=== PATIENT | female | born 2000 | race Caucasian/White ===

== ENCOUNTER → 2020-01-28 12:20 | Outpatient (CLI) | payer OTHER, MEDICAID, SELFPAY ==
[2020-01-28 13:05] LABS: Appearance Urine UA CLEAR; Bilirubin Urine UA NEGATIVE (NEGATIVE); Color Urine UA YELLOW; Glucose Urine UA NEGATIVE (Negative); Ketones Urine UA TRACE (NEGATIVE); Leukocyte Esterase Urine UA NEGATIVE (NEGATIVE); Nitrite Urine UA NEGATIVE (Negative); Occult Blood Urine UA TRACE-LYSED (Negative); Protein Urine UA NEGATIVE (Negative); Specific Gravity Urine UA 1.015 (1.000-1.035); Urobilinogen Urine UA 0.2 E.U./dL (0.2)
[2020-01-28 13:08] LABS: Add Manual Diff / Slide Review NO; Basophils Absolute Auto 0 /uL (0-100); Basophils Percent Auto 0.2 % (0-2); Eosinophils Absolute Auto 0 /uL (0-450); Eosinophils Percent Auto 0.3 % (2-4); Hematocrit 41.9 % (36-46); Hemoglobin 14.7 g/dL (12.0-16.0); Lymphocytes Absolute Auto 1900 /uL (1100-4500); Lymphocytes Percent Auto 17.5 % (25-40); Mean Corpuscular Volume 88.6 fL (80-100); Monocytes Absolute Auto 500 /uL (0-900); Monocytes Percent Auto 4.5 % (3-14); Neutrophils Absolute Auto 8200 /uL (1500-7000); Neutrophils Percent Auto 77.5 % (50-75); Platelet Count 262 X10^3/uL (150-400); Red Blood Cell Count 4.74 X10^6/uL (4.0-5.2); Red Cell Distribution Width 13.5 % (11.6-14.8); White Blood Cell Count 10.6 X10^3/uL (4.5-11.0)
[2020-01-29 10:38] LABS: Varicella IgG Antibody <135 index (Immune >165)
[2020-01-30 15:57] LABS: Hepatitis B Surface Antigen NEGATIVE s/c (NEGATIVE); Rubella Antibody IgG 9.3 IU/mL (>15)
[2020-01-30 15:58] LABS: HIV 1 & 2 Ab/Ag 4th Gen Combo NEGATIVE (NEGATIVE); Hep C Virus Ab w/Reflex Quant NEGATIVE s/c (NEGATIVE)
[2020-01-31 05:09] LABS: RPR Screen Non Reactive (Non Reactive)
== END ==
PROVIDERS: Family Provider Family Medicine; PCP Family Medicine; Referring Provider Family Medicine; Visit Provider Family Medicine
DX: Z34.91 Encounter for supervision of normal pregnancy, unspecified, first trimester (principal)
CPT/HCPCS: 36415; 80055; 81003; 86787; 86803; 86850; 86900; 86901; 87086; 87389

== ENCOUNTER 2020-03-30 23:34 | Emergency (ER) | payer BC, OTHER, MEDICAID, SELFPAY ==
--- NOTE | 2020-03-30 23:41 | ED_ITS ---
HPI - Headache General Chief Complaint: Headache Stated Complaint: migraine X1week Time Seen by Provider: 03/30/20 23:39 Source: patient Mode of arrival: Ambulatory Limitations: no limitations History of Present Illness HPI Narrative: 19-year-old female nonsmoker with history of headaches presents with a chief complaint of a headache for the past week or so. She denies any injury nor fever chills. She has no neck pain. She has no numbness, tingling or weakness. She is a without history of abnormal blood pressures. She has tried taking Tylenol at home and spoke with her primary care provider today and was given a prescription for Reglan which has yet to provide much in the way of relief. MD Complaint: headache and migraine Onset (ago): day(s) Onset description: gradual Location: diffuse Severity: moderate Quality: aching, throbbing and different than previous headaches Relieving factors: dark room Exacerbating factors: light Context: occurred at rest Associated symptoms: nausea Treatments prior to arrival: acetaminophen and antiemetic Related Data Home Medications Medication Instructions Recorded Confirmed prenat.vits,ramona,[id number] 1 tab PO DAILY 01/23/20 03/27/20 Previous Rx's Medication Instructions Recorded metoclopramide HCl 10 mg tablet 10 mg PO ONCE PRN #1 tab 03/30/20 Allergies Allergy/AdvReac Type Severity Reaction Status Date / Time acetaminophen [From TYLENOL] Allergy Unknown Verified 03/27/20 08:32 prochlorperazine Allergy Unknown Verified 03/27/20 08:32 [From COMPAZINE] Review of Systems Constitutional Constitutional: Denies chills, Denies fatigue, Denies fever(s), Denies frequent falls, Reports headache(s), Denies lethargy and Denies weakness Eyes Eyes: Denies change in vision, Denies eye discharge, Denies irritation and Denies loss of vision ENT Ears, Nose, Mouth, and Throat: Denies change in voice, Denies dizziness, Reports headache(s), Denies neck pain, Denies sore throat and Denies throat swelling Cardiovascular Cardiovascular: Denies chest pain, Denies irregular heart rhythm, Denies lightheadedness, Denies palpitations, Denies dyspnea, Denies dyspnea on exertion and Denies orthopnea Respiratory Respiratory: Denies cough, Denies dyspnea, Denies dyspnea on exertion and Denies wheezing Gastrointestinal Gastrointestinal: Denies abdominal pain, Denies change in bowel habits, Denies diarrhea, Reports nausea and Denies vomiting Musculoskeletal Musculoskeletal: Denies neck pain and Denies numbness Integumentary/Breasts Skin/Breast: Denies pruritus, Denies erythema, Denies rash and Denies wounds Neurologic Neurologic: Denies behavioral changes, Denies confusion, Denies dizziness, Denies frequent falls, Reports headache(s), Denies loss of vision, Denies numbness and Denies weakness Psychiatric Psychiatric: Denies anxiety, Denies behavioral changes, Denies confusion, Denies depression, Denies homicidal ideation and Denies suicidal ideation Endocrine Endocrine: Denies fatigue, Denies flushing and Denies palpitations Hematologic/Lymphatic Hematologic/Lymphatic: Denies easy bruising Allergic/Immunologic Allergic/Immunologic: Denies urticaria, Denies throat swelling and Denies wheezing Patient History Medical History Dislocation of left wrist (Acute) Headache (Chronic ~2011) Migraine (Acute ~2011) Strain of right knee (Acute) Strain of right knee and leg (Acute) Surgical History H/O wisdom tooth extraction (Acute) History of primary section (Acute ~05/15/19) Hx of tonsillectomy (Acute) S/P left knee arthroscopy (Acute) Family History Mother Anxiety Hypertension Stroke Depression Ovarian cancer Cervical cancer Clotting disorder Father Depression Grandfather No problems noted. Grandmother Pancreatic cancer Diabetes mellitus Hypertension Grandfather Stroke Myocardial infarct Grandmother No problems noted. Brother Depression Anxiety Autism Sister Depression Anxiety Social History marital status: number of children: 1 pets and animals: Yes (X 1 dog) education level: other (Declined) occupational status: unemployed current occupational exposures/hazards: No special kyle needs: No Smoking Status: Never smoker second hand exposure: No alcohol intake: never substance use type: does not use Smoking Status: Never smoker Exam Narrative Exam Narrative: GENERAL: [19] year old patient appears stated age. Well- nourished, well-developed patient, in mild distress. HEAD: Atraumatic. Normocephalic. EYES: Pupils equal round and reactive. Extraocular motions intact. No scleral icterus. No injection or drainage. ENT: Nose without bleeding, purulent drainage. Throat without erythema, tonsill ar hypertrophy or exudate. Airway patent. NECK: Trachea midline. Non tender CARDIOVASCULAR: Regular rate and rhythm without murmurs, gallops, or rubs. RESPIRATORY: Clear to auscultation. Breath sounds equal bilaterally. No wheezes, rales, or rhonchi. GASTROINTESTINAL: Abdomen soft, non-tender, nondistended. EXTREMITIES: No edema or joint tenderness. BACK: Nontender without deformity or crepitance. No flank tenderness. NEURO: AOx3. SKIN: No rash or erythema of visible areas NIH Stroke Scale 1a. LOC: Patient is alert and keenly responsive (0) 1b. LOC Questions: Patient answers both LOC questions accurately (0) 1c. LOC Commands: Patient performs both tasks correctly (0) 2. Best Gaze: Normal (0) 3. Visual: No visual loss (0) 4. Facial palsy: Normal symmetrical movements (0) 5. Motor arm: No drift (0) 6. Motor leg: No drift (0) 7. Limb ataxia: Absent (0) 8. Sensory: Normal (0) 9. Best language: No aphasia; normal (0) 10. Dysarthria: Normal (0) 11. Extinction and inattention: No abnormality (0) NIHSS: 0 Course Course Course Narrative: Patient's parents minimal improvement after IV fluids and Reglan. She was given Toradol and Tylenol and had a near complete resolution of her symptoms. I did discuss with her the minimal likely wrist of using Toradol during 2nd trimester and we both agreed that the given evidence would suggest the potential benefit is worth the minimal risk. Orders Ordered: Discontinued Medications Acetaminophen (Tylenol) 975 mg PO NOW ONE Stop: 03/31/20 01:39 Last Admin: 03/31/20 01:48 Dose: 975 mg Documented by: LIZABETH Sodium Chloride (Normal Saline 0.9%) 1,000 mls @ 1,000 mls/hr IV BOLUS ONE Stop: 03/31/20 00:43 Last Infusion: 03/31/20 01:49 Dose: 0 mls/hr Documented by: Admin: 03/31/20 00:19 Dose: 1,000 mls/hr Documented by: PER Ketorolac Tromethamine (Toradol) 15 mg IV NOW ONE Stop: 03/31/20 01:37 Last Admin: 03/31/20 01:48 Dose: 15 mg Documented by: LIZABETH Metoclopramide HCl (Reglan) 10 mg IV NOW ONE Stop: 03/31/20 00:39 Last Admin: 03/31/20 00:46 Dose: 10 mg Documented by: STEVEN MDM - Headache MDM Narrative Medical decision making narrative: Multiple etiologies for patient's symptoms considered including: [migraine vs. preeclampsia vs. other] Patient's symptoms improved over duration of stay with above-stated therapies. Findings and discharge diagnosis discussed with patient/family followed by verbalization of understanding Return precautions discussed with patient/family whom verbalize understanding. Discharge Plan Departure Patient Disposition: Home Clinical Impression: Headache Qualifiers: Headache type: unspecified Headache chronicity pattern: acute headache Intractability: not intractable Qualified Code(s): R51 - Headache Migraine Qualifiers: Migraine type: unspecified Status migrainosus presence: without status migrainosus Intractability: not intractable Qualified Code(s): G43.909 - Migraine, unspecified, not intractable, without status migrainosus Instructions: DI for Migraine, DI for Headache Activity Restrictions/Additional Instructions: *You have been diagnosed with [acute migraine-type headache] *What to do: *Take medications as directed *Follow up with your primary care provider in 2-3 days, call for an appointment. Let them know you were seen in the Emergency Department and that we ask that you be seen in follow up *Return to ER if you should have any new, worsening or concerning symptoms, such as [ ] Prescriptions: No Action metoclopramide HCl [Reglan] 10 mg tablet 10 mg PO ONCE PRN (Reason: nausea and vomiting) Qty: 1 RF: 0 prenat.vits,ramona,[id number] Tablet 1 tab PO DAILY RF: 0 Referrals: Stan Sanchez MD [Primary Care Provider] -
[2020-03-31] MEDS: SODIUM CHLORIDE 0.9% 1,000 ML 1000 ML IV (00:19)
[2020-03-31] MEDS: METOCLOPRAMIDE 10 MG/2 ML INJ IV (00:46)
[2020-03-31] MEDS: ACETAMINOPHEN 325 MG TABLET 975 MG PO (01:48)
[2020-03-31] MEDS: KETOROLAC 60 MG/2 ML VIAL 15 MG IV (01:48)
[2020-03-31 02:22] VITALS: BP 130/69; PULSE 78; RESP 16; TEMP 36.4; O2SAT 100
== END 2020-03-31 02:23 | disposition home or self-care (01) ==
PROVIDERS: Emergency Provider Emergency Medicine; Family Provider Family Medicine; PCP Family Medicine
DX: G43.909 Migraine, unspecified, not intractable, without status migrainosus (principal)
CPT/HCPCS: 36415; 96361; 96374; 96375; 99284; J1885; J2765

== ENCOUNTER → 2020-04-24 12:03 | Outpatient (CLI) | payer BC, OTHER, MEDICAID, SELFPAY ==
--- NOTE | 2020-04-24 12:04 | DI.US.S_ITS ---
PROCEDURE: US OB >= 14 WEEKS FETUS INDICATIONS: ANATOMIC SURVEY OUTSIDE/PRIOR DATING DATA: Last menstrual period (LMP): Unknown. LMP-based estimated date of delivery (PERRY): Unknown . First dating scan (date and location): 04/24/20 . Estimated date of delivery (PERRY) from first dating scan: 09/10/20 . TECHNIQUE: Real-time scanning was performed of the fetus, with image documentation and biometric measurements. Endovaginal scanning: Not performed COMPARISON: None. FINDINGS: General: A single living intrauterine gestation is present. Presentation: Breech. Placenta: Placental position is anterior , without previa. Amniotic fluid index: 9.4 cm, normal range is 5-24 cm. heart rate: 132 beats per minute. Maternal cervical canal: 5.0 cm long. Normal lower limit is 2.5 cm. biometrics: Biparietal diameter: 4.5 cm, 19 weeks 3 days Head circumference: 16.9 cm, 19 weeks 4 days Abdominal circumference: 15.8 cm, 21 weeks 0 days Femur length: 3.3 cm, 20 weeks 2 days Estimated gestational age from initial scan: not applicable. Composite gestational age from present scan: 20 weeks 1 day Estimated weight and percentile: 359 g. Measurement variability for biometric dating: +/- 7 days from 14 weeks to 15 weeks 6 days gestation, +/- 10 days from 16 weeks to 21 weeks 6 days gestation, +/- 2 weeks from 22 weeks to 27 weeks 6 days gestation, +/- 3 weeks for 28 weeks gestation or later. weight reference: 4500 g or EFW >90/95% is considered macrosomia or large for gestational age. EFW <10% is small for gestational age. EFW 5% or less is considered intra-uterine growth restriction. Anatomic survey: Neuro: Ventricles are non-dilated at less than 10 mm. Cisterna magna is normal at 3-11 mm. Cerebellum is normal in size and morphology. Nuchal skin fold: Normal at less than 6 mm between 14-21 weeks gestational age. Face: Nose and lips, facial profile are normal. Spine: No evidence for spina bifida. Heart: 4-chambered heart is present, with normal ventricular outflow tracts. Diaphragm: Diaphragm is intact. Stomach: Left-sided stomach is present. Kidneys: No hydronephrosis. Normal is less than 5 mm in 2nd trimester, less than 7 mm in 3rd trimester. Cord: 3-vessel cord has orthotopic insertion. Bladder: Normal in size. Extremities: All 4 extremities identified. IMPRESSION: Single living intrauterine fetus in breech presentation demonstrating gestational age of 20 weeks and 1 day by today's measurements as detailed above. Given the absence of LMP or first-trimester dating ultrasound, a follow-up ultrasound in 3-4 weeks for growth assessment could be performed as clinically necessary. Normal anatomic survey. Dictated by: Parminder Watters M.D. on 04/24/2020 at 16:52 Approved by: Parminder Watters M.D. on 04/24/2020 at 16:56
== END ==
PROVIDERS: Family Provider Family Medicine; PCP Family Medicine; Referring Provider Family Medicine; Visit Provider Family Medicine
DX: Z34.82 Encounter for supervision of other normal pregnancy, second trimester (principal); Z3A.20 20 weeks gestation of pregnancy
CPT/HCPCS: 76811

== ENCOUNTER → 2020-05-14 15:11 | Outpatient (CLI) | payer BC, OTHER, MEDICAID, SELFPAY ==
[2020-05-16 08:32] LABS: COVID19 Sendout Not Detected (Not Detect)
== END ==
PROVIDERS: Family Provider Family Medicine; PCP Family Medicine; Visit Provider Physician Assistant
DX: Z11.59 Encounter for screening for other viral diseases (principal); J02.9 Acute pharyngitis, unspecified
CPT/HCPCS: 87070; 87635

== ENCOUNTER → 2020-06-02 11:08 | Outpatient (CLI) | payer BC, OTHER, MEDICAID, SELFPAY ==
[2020-06-02 13:09] LABS: Hemoglobin 13.1 g/dL (12.0-16.0)
[2020-06-02 13:35] LABS: GTT (PREG) 1 Hour PP 50gm Dose 132 mg/dL (76-139)
== END ==
PROVIDERS: Family Provider Family Medicine; PCP Family Medicine; Referring Provider Family Medicine; Visit Provider Family Medicine
DX: Z34.82 Encounter for supervision of other normal pregnancy, second trimester (principal); Z3A.24 24 weeks gestation of pregnancy
CPT/HCPCS: 82950; 85014; 85018

== ENCOUNTER 2020-07-06 10:08 | Outpatient (CLI) | payer BC, OTHER, MEDICAID, SELFPAY | END 2020-07-06 11:18 | disposition home or self-care (01) | LOC: LABOR 10:36 → OB 07-09 10:01 | PROVIDERS: Family Provider Family Medicine; PCP Family Medicine; Referring Provider Family Medicine; Visit Provider Family Medicine | DX: O46.8X3 Other antepartum hemorrhage, third trimester (principal); Z3A.30 30 weeks gestation of pregnancy | CPT/HCPCS: 59025; G0378; G0379 ==

== ENCOUNTER → 2020-07-27 09:49 | Outpatient (CLI) | payer BC, OTHER, MEDICAID, SELFPAY ==
--- NOTE | 2020-07-27 09:50 | DI.US.S_ITS ---
PROCEDURE: US OB LIMITED INDICATIONS: SPOTTING OUTSIDE/PRIOR DATING DATA: Last menstrual period (LMP): Unknown . LMP-based estimated date of delivery (PERRY): Unknown . First dating scan (date and location): 04/24/20 . Estimated date of delivery (PERRY) from first dating scan: 09/10/19 . TECHNIQUE: Real-time scanning was performed of the fetus, with image documentation and biometric measurements. Endovaginal scanning: Not performed COMPARISON: [facility], OB >= 14 WEEKS FETUS, 04/24/2020, 12:50. FINDINGS: General: A single living intrauterine gestation is present. Presentation: Vertex. Placenta: Placental position is anterior , without previa. Amniotic fluid index: 15.5 cm, normal range is 5-24 cm. Largest pocket measures 4.6 cm heart rate: 132 beats per minute. Maternal cervical canal: 4.1 cm long. Normal lower limit is 2.5 cm. No funneling is seen. biometrics: Biparietal diameter: 8.6 cm, 34 weeks 6 days Head circumference: 31.8 cm, 35 weeks 5 days Abdominal circumference: 28.7 cm, 32 weeks 5 days Femur length: 6.6 cm, 33 weeks 5 days Estimated gestational age from initial scan: 33 weeks 4 days Composite gestational age from present scan: 34 weeks 2 days Estimated weight and percentile: 2218 g, 41st percentile Measurement variability for biometric dating: +/- 7 days from 14 weeks to 15 weeks 6 days gestation, +/- 10 days from 16 weeks to 21 weeks 6 days gestation, +/- 2 weeks from 22 weeks to 27 weeks 6 days gestation, +/- 3 weeks for 28 weeks gestation or later. weight reference: 4500 g or EFW >90/95% is considered macrosomia or large for gestational age. EFW <10% is small for gestational age. EFW 5% or less is considered intra-uterine growth restriction. Other: Not applicable. IMPRESSION: Single living intrauterine fetus in vertex presentation Cervical length measures 4.1 cm Normal JAMES Dictated by: Parminder Watters M.D. on 07/27/2020 at 17:12 Approved by: Parminder Watters M.D. on 07/27/2020 at 17:15
== END ==
PROVIDERS: Family Provider Family Medicine; PCP Family Medicine; Referring Provider Family Medicine; Visit Provider Family Medicine
DX: O26.853 Spotting complicating pregnancy, third trimester (principal); Z3A.34 34 weeks gestation of pregnancy
CPT/HCPCS: 76815

== ENCOUNTER → 2020-08-15 16:08 | Outpatient (CLI) | payer BC, OTHER, MEDICAID, SELFPAY ==
[2020-08-16 16:52] LABS: Strep Grp B PCR POS for Grp B Strep
== END ==
PROVIDERS: Family Provider Family Medicine; PCP Family Medicine; Visit Provider Family Medicine
DX: Z34.83 Encounter for supervision of other normal pregnancy, third trimester (principal); Z3A.36 36 weeks gestation of pregnancy
CPT/HCPCS: 87653

== ENCOUNTER 2020-09-06 06:15 | Inpatient (IN) | payer BC, OTHER, MEDICAID, SELFPAY ==
[2020-09-06 06:56] LABS: Add Manual Diff / Slide Review NO; Basophils Absolute Auto 0 /uL (0-100); Basophils Percent Auto 0.4 % (0-2); Eosinophils Absolute Auto 100 /uL (0-450); Eosinophils Percent Auto 0.7 % (2-4); Hematocrit 41.1 % (36-46); Hemoglobin 13.6 g/dL (12.0-16.0); Lymphocytes Absolute Auto 2700 /uL (1100-4500); Lymphocytes Percent Auto 22.8 % (25-40); Mean Corpuscular HGB Conc 33.1 % (30-36); Mean Corpuscular Hemoglobin 29.7 PG (26-34); Mean Corpuscular Volume 89.6 fL (80-100); Monocytes Absolute Auto 700 /uL (0-900); Neutrophils Absolute Auto 8400 /uL (1500-7000); Neutrophils Percent Auto 70.1 % (50-75); Platelet Count 192 X10^3/uL (150-400); Red Blood Cell Count 4.58 X10^6/uL (4.0-5.2); Red Cell Distribution Width 13.8 % (11.6-14.8)
--- NOTE | 2020-09-06 07:07 | P.HPOB_ITS ---
OB HPI Date/Time Date of admission: 09/06/20 Date Patient Seen: 09/06/20 History of Present Condition Chief complaint: INPT : 2 Para: 1 Estimated Date of Delivery: 09/11/20 Estimated Gestational Age (weeks): 39 5 Narrative: Cipriano Cates is a 20 year old female G2 para 1 with an estimated due date 09/11/2020 patient here for repeat section previous primary . She has been doing well over night. Had routine care. Some intermittent contractions no headache dizziness cough congestion no shortness of breath. No bleeding or spotting no leakage of fluid. Last food was 10 30 last night. Category 1 tracing this morning. Blood pressure is stable. Reviewed procedure with her and her partner today. Discussed in patient care policies and procedures of . Informed consent was obta ined. Reviewed risks of including bleeding infection injury to bladder bowel or internal organs. Patient during her care had some complications of some mid 2nd trimester spotting within normal ultrasound. Patient declined genetic screening. Patient rubella and varicella nonimmune. Indications Operative indications ( section): previous uterine surgery History of Present care: good care Dating criteria: LMP confirmed by 1st trimester US Ultrasounds: normal mid trimester US Obstetrical complications: none Medical complications: none Preadmission Labs Blood type: O (+) positive -: Antibody screen: negative, Cystic fibrosis screen: unknown, GBS status: positive, HBsAG: negative, HIV: negative, HSV 1: unknown, HSV 2: unknown and RPR/VDLR: negative -: Chlamydia screen: not detected and Gonorrhea screen: not detected -: Rubella: not immune and Varicella: not immune HCT: 41 PAP: Normal Integrated screen: Declined Sequential screen: Declined 1 hr GTT: 132 Prior (ies) History: Previous primary Evaluation Evaluation Laboratory results: Laboratory Tests 09/06/20 06:30 WBC 12.0 H RBC 4.58 Hgb 13.6 Hct 41.1 MCV 89.6 MCH 29.7 MCHC 33.1 RDW 13.8 Plt Count 192 Neut % (Auto) 70.1 Lymph % (Auto) 22.8 L [place] % (Auto) 6.0 Eos % (Auto) 0.7 L Baso % (Auto) 0.4 Neut # (Auto) 8400 H Lymph # (Auto) 2700 [place] # (Auto) 700 Eos # (Auto) 100 Baso # (Auto) 0 PFSH Medical History Dislocation of left wrist Headache (~2011) Migraine (~2011) Otitis media Strain of right knee Strain of right knee and leg URI (upper respiratory infection) Surgical History H/O wisdom tooth extraction History of primary section (~05/15/19) Hx of tonsillectomy S/P left knee arthroscopy Family History Mother Anxiety Hypertension Stroke Depression Ovarian cancer Cervical cancer Clotting disorder Father Depression Grandfather No problems noted. Grandmother Pancreatic cancer Diabetes mellitus Hypertension Grandfather Stroke Myocardial infarct Grandmother No problems noted. Brother Depression Anxiety Autism Sister Depression Anxiety Social History marital status: number of children: 1 pets and animals: Yes (X 1 dog) education level: other (Declined) occupational status: unemployed current occupational exposures/hazards: No special kyle needs: No Smoking Status: Never smoker second hand exposure: No alcohol intake: never substance use type: does not use Meds Home Medications and Allergies Home Medications Medication Instructions Recorded Confirmed Type prenat.vits,ramona,ukc-hcoi-qplrg 1 tab PO DAILY 01/23/20 09/06/20 History Allergies Allergy/AdvReac Type Severity Reaction Status Date / Time prochlorperazine Allergy Severe Seizure Verified 09/06/20 07:06 [From Compazine] Exam Narrative Exam Narrative: . General: Alert no apparent distress. Affect is appropriate. Timothy it is uncomfortable. HEENT: Neck is supple without lymphadenopathy pupils equal round and reactive. Cardio: S1-S2 regular rate and rhythm. Respiratory: Lungs clear to auscultation. Abdomen: Gravid. Extremities: Normal deep tendon reflexes trace edema. [place]: No contractions heart tones: Category 1 tracing Objective Labs Result Diagrams: 09/06/20 06:30 Labs: Laboratory Results - last 24 hr 09/06/20 06:30 WBC 12.0 H RBC 4.58 Hgb 13.6 Hct 41.1 MCV 89.6 MCH 29.7 MCHC 33.1 RDW 13.8 Plt Count 192 Neut % (Auto) 70.1 Lymph % (Auto) 22.8 L [place] % (Auto) 6.0 Eos % (Auto) 0.7 L Baso % (Auto) 0.4 Neut # (Auto) 8400 H Lymph # (Auto) 2700 [place] # (Auto) 700 Eos # (Auto) 100 Baso # (Auto) 0 Assessment and Plan Assessment and Plan Assessment and Plan narrative: G2 para 1 at 39 weeks and 2 7 stays here for repeat section. Consent was obtained. History and physical was done today. Reviewed risks and common complications of . Patient's COVID test will be drawn. Laboratory testing and type and screen will be ordered. Antibiotics will be on-call. Patient is GBS positive.
--- NOTE | 2020-09-06 07:11 | SUR.OPER ---
Supine on Padded OR bed, head on pillow, safety belt at thigh, arms secured on padded arm boards at <90 degrees abduction. Bump under right buttock. Legs uncrossed with pillow under knees, gel pad to heels, tape over blanket to lower legs.
[2020-09-06 07:13] LABS: COVID19 -Nasal RAPID Negative (Negative)
[2020-09-06 08:00] VITALS: BP 116/79
[2020-09-06] MEDS: CEFAZOLIN 2 GM/100 ML FROZ.PIGGY IV (08:10)
[2020-09-06] MEDS: LACTATED RINGERS 1,000 ML 1000 ML IV ×2 (08:15→08:26)
--- NOTE | 2020-09-06 08:44 | SUR.OPER ---
Viable female delivered at 08:39. Cord blood vial x2 and placenta sent with L&D RN.
--- NOTE | 2020-09-06 09:22 | P.PCN_ITS ---
Procedures Date/Time Date of procedure: 09/06/20 Time of procedure: 09:22 General Procedure description: Procedure: Lower segment transverse section Consent: Verbal and written informed consent were obtained from the patient placed on the chart. Indications: 20-year-old G2 para 1 at term repeat section Findings: Normal uterus normal ovaries lots of scar tissue Female infant Anesthesia: Spinal Surgeon: Dr. Stan Sanchez Advanced Practice Nurse Psychotherapist: Dr. Dorcas Bautista Estimated blood loss: 500 mL Drains: Segundo to gravity. IV fluids: 1800 LR Description of procedure: The patient was brought to the operating room after her spinal epidural, preparation, and Segundo had been performed. The abdomen was prepped and draped in tested for for analgesia. When it was found to be adequate, a lower abdominal Pfannenstiel incision was made with first with a knife and cared down to the fascia with a second knife. The fascia was incised in the midline and extended laterally with a knife. Bleeding points were clamped with hemostats and Bovie coagulated. The rectus muscles were by blunt dissection. There was a significant amount of scar tissue. Requiring blunt dissection. The rectus muscles were divided in the midline and the peritoneum was grasped with hemostats and carefully entered with Kaye scissors. The incision was extended bilaterally. On entering the peritoneal cavity. There was adhesions to the peritoneum the uterus to low wall which had to be bluntly and sharply dissected off The bladder blade was then placed. On inspection of the uterus there was a small uterine window in the patient's left lower quadrant area. The bladder was low but unable to be dissected off the uterus. The lower uterine segment was noted to be thin was carefully incised with the scalpel and extended laterally with the fingers. A live was found to be in the vertex. The head was then easily elevated with the hand. Head was delivered with the use of a vacuum. The baby was then suctioned and cried immediately, and was handed to the waiting attendant. The placenta was delivered manually. The uterus was explored with a wet lap sponge and found to be clear membranes. The first layer of the uterine closure was with running locking #1 chromic catgut suture. The second layer with an imbricating #1 chromic catgut suture. Hemostasis was carefully checked and found to be satisfactory. The bladder flap was not reapproximated. After sponge and needle counts were found to be correct the peritoneum was closed with 2-0 chromic catgut suture. Rectus muscles were approximated in the lower midline. The fascia was closed with a 2 running 0 Vicryl from lateral to midline. The subcutaneous tissue was approximated with interrupted 2.0 plain gut. Bleeding points were Bovie and coagulated. The subcutaneous tissue was approximated with 20 plain gut suture. The skin was closed with 1-0 running subcuticular stitch. Urinary output was adequate and normal patient left to the recovery room in good condition.
[2020-09-06 09:23] VITALS: BP 109/67; PULSE 64; RESP 14; TEMP 36.4; O2SAT 99
[2020-09-06 09:27] VITALS: BP 114/67; PULSE 59; RESP 14; O2SAT 99
[2020-09-06 09:32] VITALS: BP 112/67; PULSE 67; RESP 14; O2SAT 98
[2020-09-06 09:37] VITALS: BP 118/72; PULSE 60; RESP 16; O2SAT 99
[2020-09-06] MEDS: LACTATED RINGERS 1,000 ML 100 ML IV (10:02)
[2020-09-06] MEDS: ONDANSETRON 4 MG/2 ML INJ IV ×2 (13:42→19:52)
[2020-09-06] MEDS: KETOROLAC 30 MG/ML VIAL IV ×2 (15:18→21:15)
[2020-09-06] MEDS: METOCLOPRAMIDE 10 MG/2 ML INJ IV (17:25)
[2020-09-07] MEDS: ACETAMINOPHEN 325 MG TABLET 650 MG PO ×2 (03:28→09:47)
[2020-09-07] MEDS: IBUPROFEN 600 MG TABLET PO ×2 (03:28→09:46)
--- NOTE | 2020-09-07 08:16 | PM.DS.1 ---
History of Present Illness History of Present Illness Chief complaint: INPT Discharge Providers Provider Date of admission: 09/06/20 06:15 Discharge Date: 09/07/20 Primary care physician: Stan Sanchez MD Consults: 09/06/20 09:34 Consult to Smoking Pipe Mounter Routine Comment: Discharge provider: Stan Sanchez MD Summary Hospital Course Discharge Diagnosis: 20-year-old G2 now para 2 status post repeat Hospital Course: Patient was admitted the hospital for repeat section. was accomplished without significant difficulty. Patient had a lot of scar tissue during the surgical process and had a uterine window. Discussed this with patient about future pregnancies. Postoperatively patient did well she had some nausea requiring Zofran and Reglan. Following day she was eating well. Breast-feeding was going well vital signs were stable. She was tolerating her diet. Hemoglobin hematocrit is pending. Patient is ambulating and voiding. Patient was just taking Tylenol and ibuprofen for pain. Patient was requesting to be discharged later this afternoon. We discussed about pain medication Tylenol Motrin bowel care. We discussed about bleeding spotting and signs and symptoms of infection. Exam Vital Signs (past 8 hours): Oxygen Delivery Method Room Air Narrative Exam Narrative: General: Alert no apparent distress. Affect is appropriate. Timothy it is uncomfortable. HEENT: Neck is supple without lymphadenopathy pupils equal round and reactive. Cardio: S1-S2 regular rate and rhythm. Respiratory: Lungs clear to auscultation. Abdomen: Uterus firm. Incision clean dry and intact. Extremities: Normal deep tendon reflexes trace edema. Objective Labs Result Diagrams: 09/06/20 06:30 [facility] Medical History Dislocation of left wrist Headache (~2011) Migraine (~2011) Otitis media Strain of right knee Strain of right knee and leg URI (upper respiratory infection) Surgical History H/O wisdom tooth extraction History of primary section (~05/15/19) Hx of tonsillectomy S/P left knee arthroscopy Family History Mother Anxiety Hypertension Stroke Depression Ovarian cancer Cervical cancer Clotting disorder Father Depression Grandfather No problems noted. Grandmother Pancreatic cancer Diabetes mellitus Hypertension Grandfather Stroke Myocardial infarct Grandmother No problems noted. Brother Depression Anxiety Autism Sister Depression Anxiety Social History marital status: number of children: 1 pets and animals: Yes (X 1 dog) education level: other (Declined) occupational status: unemployed current occupational exposures/hazards: No special kyle needs: No Smoking Status: Never smoker second hand exposure: No alcohol intake: never substance use type: does not use Discharge Plan Discharge Plan Patient Disposition: Home Discharge orders & Medications Prescriptions: New hydrocodone-acetaminophen 5-325 mg Tablet 2 tab PO Q4HR PRN (Reason: Pain, Severe (7-10)) Qty: 25 RF: 0 docusate sodium 250 mg Capsule 250 mg PO DAILY Qty: 30 RF: 0 acetaminophen 325 mg Tablet 650 mg PO Q6HR PRN (Reason: Fever/Mild Pain (1-3)) Qty: 30 RF: 0 ibuprofen 600 mg Tablet 600 mg PO Q6HR PRN (Reason: Fever/Mild Pain (1-3)) Qty: 30 RF: 0 Continued prenat.vits,ramona,[id number] Tablet 1 tab PO DAILY RF: 0 Follow up/Referrals: Stan Sanchez MD [Primary Care Provider] - Visit Report/Discharge Packet Visit Report Forms: Patient Portal/API, Stroke Signs & Symptoms Discharge Data Primary Care Provider: Stan Sanchez
[2020-09-07] MEDS: DOCUSATE 250 MG CAPSULE PO (08:23)
[2020-09-07] MEDS: HYDROCODONE/ACET 5/325 TABLET 2 TAB PO (08:24)
[2020-09-07 09:01] LABS: Add Manual Diff / Slide Review NO; Basophils Absolute Auto 0 /uL (0-100); Basophils Percent Auto 0.2 % (0-2); Eosinophils Absolute Auto 100 /uL (0-450); Eosinophils Percent Auto 0.7 % (2-4); Hematocrit 38.4 % (36-46); Hemoglobin 12.7 g/dL (12.0-16.0); Lymphocytes Absolute Auto 2600 /uL (1100-4500); Lymphocytes Percent Auto 20.7 % (25-40); Mean Corpuscular Hemoglobin 29.7 PG (26-34); Mean Corpuscular Volume 89.9 fL (80-100); Monocytes Absolute Auto 700 /uL (0-900); Monocytes Percent Auto 5.6 % (3-14); Neutrophils Absolute Auto 9200 /uL (1500-7000); Neutrophils Percent Auto 72.8 % (50-75); Platelet Count 164 X10^3/uL (150-400); Red Blood Cell Count 4.27 X10^6/uL (4.0-5.2); Red Cell Distribution Width 13.8 % (11.6-14.8); White Blood Cell Count 12.6 X10^3/uL (4.5-11.0)
[2020-09-07] MEDS: MEASLES,MUMPS,RUBELLA VACC/PF 0.5 ML VIAL SUBCUT (12:13)
== END 2020-09-07 12:45 | disposition home or self-care (01) | DRG 788 ==
PROVIDERS: Admitting Provider Family Medicine; Family Provider Family Medicine; PCP Family Medicine; Referring Provider Family Medicine; Visit Provider Family Medicine
PROC: 10D00Z1 Extraction of Products of Conception, Low, Open Approach (ICD-10-PCS; CPT 59514; principal; 2020-09-06 07:45)
DX: O34.219 Maternal care for unspecified type scar from previous cesarean delivery (principal); Z3A.39 39 weeks gestation of pregnancy; Z37.0 Single live birth; O99.824 Streptococcus B carrier state complicating childbirth; Q51.818 Other congenital malformations of uterus; Z20.822 Contact with and (suspected) exposure to COVID-19
CPT/HCPCS: 36415; 59050; 59510; 59514; 85025; 86850; 86900; 86901; 87635; C9803; J0690; J1885; J2274; J2405; J2590; J2765; J3010

== ENCOUNTER → 2020-09-20 09:42 | Outpatient (CLI) | payer BC, OTHER, MEDICAID, SELFPAY ==
--- NOTE | 2020-09-20 09:43 | DI.US.S_ITS ---
PROCEDURE: US EXTREMITY NONVASC LOWER LT INDICATIONS: LEFT UPPER THIGH LUMP TECHNIQUE: Real-time scanning was performed of the left inguinal region, with image documentation. COMPARISON: None. FINDINGS: New line ultrasound examination at patient's reported area of palpable lump shows a 3 x 0.7 x 1.2 cm lymph node with normal vascularity. Cortex measures 3.4 millimeter in thickness. This noted anterior to left common femoral artery. IMPRESSION: Slightly prominent left inguinal lymph node as above. Dictated by: Les Ocasio M.D. on 09/25/2020 at 8:37 Approved by: Les Ocasio M.D. on 09/25/2020 at 8:39
== END ==
PROVIDERS: Family Provider Family Medicine; PCP Family Medicine; Referring Provider Family Medicine; Visit Provider Family Medicine
DX: R10.32 Left lower quadrant pain (principal); R22.42 Localized swelling, mass and lump, left lower limb
CPT/HCPCS: 76882